=== PATIENT | male | born 1980 | race Caucasian/White ===

== ENCOUNTER 2020-11-09 14:36 | Outpatient (REF) | payer OTHER, SELFPAY | END 2020-11-09 14:37 | disposition home or self-care (01) | LOC: HO.LAB 14:36 | PROVIDERS: Visit Provider Internal Medicine | DX: Z20.822 Contact with and (suspected) exposure to COVID-19 (principal) | CPT/HCPCS: 36415; C9803; U0003; U0005 ==

== ENCOUNTER 2023-02-26 12:31 | Outpatient (REF) | payer OTHER, SELFPAY ==
[2023-02-26 18:29] LABS: Alanine Aminotransferase 21 U/L (0-40); Albumin Level 4.4 g/dL (3.5-5.0); Alkaline Phosphatase 77 U/L (39-117); Anion Gap 14 (12-20); Aspartate Amino Transferase 22 U/L (5-37); Bilirubin Total 0.8 mg/dL (0.0-1.0); Blood Urea Nitrogen 21 mg/dL (9-16); Calcium 9.7 mg/dL (8.4-10.2); Carbon Dioxide 26 mmol/L (22-29); Chloride 106 mmol/L (96-108); Cholesterol 203 mg/dL; Estimated Glomerular Filt Rate > 60; Glucose Fasting 86 mg/dL (60-99); HDL Cholesterol 43 mg/dL; LDL Cholesterol Calculated 138 mg/dl; Potassium 4.1 mmol/L (3.3-5.1); Sodium 142 mmol/L (135-145); Total Protein 7.9 g/dL (6.5-8.0); Triglycerides 113 mg/dL
== END 2023-02-26 12:32 | disposition home or self-care (01) ==
LOC: HO.HMGCLDS 12:31
PROVIDERS: PCP Nurse Practitioner Family; Visit Provider Nurse Practitioner Family
DX: Z00.00 Encounter for general adult medical examination without abnormal findings (principal)
CPT/HCPCS: 36415; 80053; 80061; 81003; 84443; 85025

== ENCOUNTER 2023-02-26 12:46 | Outpatient (AMB) | payer OTHER, SELFPAY ==
--- NOTE | 2023-02-26 12:54 | MHC.PC.OV ---
Vital Signs 02/26/23 12:56 Height 5 ft 6 in Weight 158 lb BMI 25.5 BP 120/80 Blood Pressure Location Rt brachial Position Sitting Pulse 63 Pulse Source Pulse Oximeter Pulse Oximetry (%) 98 Oxygen Delivery Method Room Air Intake Visit Reasons: 6 month follow up Intake Note: Pt is here today for his 6 months f/u Allergies No Known Allergies Allergy (Verified 02/26/23 12:55) Medication List - Last [facility] 02[facility]26[facility]23 [facility] 20 mg PO DAILY 30 days Tobacco use date assessed: 02/26/23 Dental Screening Dental Screen Date: 02/26/23 Did you have a dental visit in the last 12 months?: Yes Did you have a dental problem in the last 6 months where you did not have access to dental care?: No Was dental information given to patient?: Patient has dentist HPI 6 month follow up HPI Details Pt c/o nausea. He reports that this is worse when he wakes up. Pt reports that he is having frequent bowel movements and feels like he is not emptying his bowels every time. Denies any vomiting, abdominal pain, constipation, blood in stool, and diarrhea. Reports a fair diet, Will refer to GI. Pt also c/o insomnia, will send trazodone. [facility] Social History Housing: Apartment Patient Tobacco Use Status: Never used Tobacco e-Cigarette/Vaping Use: Never Used Second Hand Smoke Exposure: Yes service: No Current occupational status: employed Current occupation: [employer] agency Current occupational exposures/hazards: No Cognitive needs: No Hearing needs: No Vision needs: Yes Questionnaire Thrive Questionnaire Date Thrive assessed: 09/04/22 AUDIT C Alcohol Use Questionnaire (AUDIT-C) 1. How often do you have a drink containing alcohol?: Monthly or less 2. How many drinks containing alcohol do you have on a typical day when you are drinking?: 1 or 2 3. How often do you have six or more drinks on one occasion?: Never Total Score: 1 MOHINI-7 AMB Questionnaire MOHINI-7 Date MOHINI - 7 assessed: 09/04/22 Source: Developed by Drs. Gustavo Wilkinson, Elva Louis, Junior Finn and colleagues, with an educational leonardo from [employer]. Physical exam (Primary Care) Vital Signs: Last Vital Signs Pulse 63 02/26/23 12:56 BP 120/80 02/26/23 12:56 Pulse Ox 98 02/26/23 12:56 Oxygen Delivery Method Room Air 02/26/23 12:56 BMI result Body Mass Index 25.5 Tobacco/Smoking Status: Tobacco use Status Tobacco use date assessed 02/26/23 02/26/23 12:59 Patient Tobacco Use Status Never used Tobacco 02/26/23 12:55 e-Cigarette/Vaping Use Never Used 02/26/23 12:55 Thrive Assessment: Date of Thrive Assessment Date Thrive assessed 09/04/22 02/26/23 12:55 Resp Effort & Inspection: normal respiratory effort Auscultation: clear to auscultation bilaterally Cardio Rate: regular rate Rhythm: regular rhythm Heart sounds: S1 normal heart sound present and S2 normal heart sound present GI Palpation (GI): nontender Extrem General: Yes normal to inspection Psych Appearance: grossly normal Mental Status: mental status grossly normal Speech and movement: Normal speech and movement present Affect: normal affect Attitude: cooperative Thought process: Normal thought process present Thought content: Normal thought content present Insight: Good insight present (Psych) Judgement: Good judgement present (Psych) Assessment and Plan Assessment & Plan (1) Incomplete defecation: Code(s): R15.0 - Incomplete defecation (2) Nausea: Code(s): R11.0 - Nausea Orders: Referrals Gastroenterology Referral R11.0 - Nausea, R15.0 - Incomplete defecation Medications: New trazodone 50 mg PO BEDTIME PRN 30 tabs 0RF sleep 30 days Coding Level of Care Code Est Pt Level 3 (45103) Diagnoses Incomplete defecation R15.0 Nausea R11.0
[2023-02-26 12:56] VITALS: BP 120/80; PULSE 63; O2SAT 98; BMI 25.5
== END 2023-02-26 13:39 | disposition home or self-care (01) ==
PROVIDERS: Visit Provider Nurse Practitioner Family
DX: R15.0 Incomplete defecation (principal); R11.0 Nausea
CPT/HCPCS: 99213

== ENCOUNTER 2023-06-18 14:35 | Outpatient (AMB) | payer OTHER, SELFPAY ==
--- NOTE | 2023-06-18 14:40 | A.OFFVIS_ITS ---
Intake Vital Signs 06/18/23 14:44 Height 5 ft 6 in Weight 156 lb 8.451 oz BMI 25.3 BP 111/73 Blood Pressure Location Lt brachial Position Sitting Pulse 70 Intake Visit Reasons: Nausea, Incomplete Defacation Intake Note: Mohsen presents in the office as a new patient. CC: He states that he is here today because he has pains in his stomach. Every time he has a BM he will sit there for 20 minutes and nothing comes out. Then he will get the urge like he has to go again. His stomach growls all day. No blood when he has a BM. Assistant Clinical Director Required: No Allergies No Known Allergies Allergy (Verified 06/18/23 14:44) HPI HPI Comments History of Present Illness Details This is a 43y.o M with no significant PMH who is here for change in bowel habits. Reports that for the past 4-5 months has been having severe constipation which he describes as the sensation/urgency to defecate but despite straining for 15 minutes is not able to pass a BM. When he does pass a BM its hard and pellet like. No blood in stool. No night time sx. No abd pain, changes in appetite or weight change. No fam hx of CRC or IBD. Diet consists mostly of fast food for lunch, for dinner mostly rice and beans. Drinks a lot of sodas. Does report that previously used to take a lot of salads and fruits which has now changed santos this year. [facility] Social History Housing: Apartment Patient Tobacco Use Status: Never used Tobacco e-Cigarette/Vaping Use: Never Used Second Hand Smoke Exposure: Yes service: No Current occupational status: employed Current occupation: [employer] Current occupational exposures/hazards: No Cognitive needs: No Hearing needs: No Vision needs: Yes Review of Systems Const All systems reviewed & are unremarkable except as noted in HPI and below Physical Exam Vital Signs: Last Vital Signs Pulse 70 06/18/23 14:44 BP 111/73 06/18/23 14:44 BMI result Body Mass Index 25.3 Gen appear: NAD HEENT: nonicteric, no cervical lymphadenopathy Chest: CTA CVS: Regular S1/S2 Abd: soft, nontender, nondistended, bowel sounds + Ext: no peripheral edema Neuro: A/Ox3, noted to move all extremities spontaneously Psych: interacting appropriately Assessment & Plan Assessment & Plan (1) Constipation: Code(s): K59.00 - Constipation, unspecified (2) Change in bowel habit: Code(s): R19.4 - Change in bowel habit Plan Overall assessment consistent with constipation due to lack of dietary fiber and inadequate hydration. Other ddx include celiac, IBD, thyroid disorder etc. No red flags at this time to warrant emergent endoscopic evaluation, will set one up electively for change in bowel habits unless work up abnormal (see below). Plan: - Labs ordered - Increase fluid intake to at least 8-12 cups a day - Add fiber - slowly build up to 1 tbsp mixed in 8oz water daily - Add senna or miralax PRN - [place] if sx do not improve despite these measures. Split PEG prep instructions were reviewed in anticipation and PEG sent but pt knows to call and update us if not needed. Orders: Orders Calprotectin, Fecal 06/18/23 R19.4 - Change in bowel habit TSH reflex Free T4 06/18/23 R19.4 - Change in bowel habit Immunoglobulin A 06/18/23 R19.4 - Change in bowel habit Transglutaminase IgA 06/18/23 R19.4 - Change in bowel habit Medications: New omeprazole 20 mg PO DAILY 90 caps 0RF peg 3350-electrolytes 236-22.74-6.74 -5.86 gram (Golytely) as per split prep instructions, until fecal effluent is clear 240 mL PO Q10M 4,000 mL 0RF colonoscopy Discontinued pantoprazole Discontinued Reason: Patient Completed Course 20 mg PO DAILY 30 days 30 tabs 4RF Coding Level of Care Code New Pt Level 4 (84698) Diagnoses Constipation K59.00 Change in bowel habit R19.4
[2023-06-18 14:44] VITALS: BP 111/73; PULSE 70; BMI 25.3
== END 2023-06-18 15:55 | disposition home or self-care (01) ==
PROVIDERS: PCP Nurse Practitioner Family; Visit Provider Internal Medicine
DX: K59.00 Constipation, unspecified (principal)
CPT/HCPCS: 99204

== ENCOUNTER → 2023-06-18 14:35 | Outpatient (BNVA) | payer OTHER, SELFPAY | PROVIDERS: PCP Nurse Practitioner Family; Visit Provider Internal Medicine | DX: K59.00 Constipation, unspecified (principal); R19.4 Change in bowel habit | CPT/HCPCS: 99202 ==

== ENCOUNTER 2023-09-05 15:54 | Outpatient (AMB) | payer OTHER, SELFPAY ==
[2023-09-05 16:03] VITALS: BP 118/76; PULSE 91; O2SAT 97; BMI 26.4
--- NOTE | 2023-09-05 16:03 | MHC.PC.OV ---
Vital Signs 09/05/23 16:03 Height 5 ft 6 in Weight 163 lb 8 oz BMI 26.4 BP 118/76 Blood Pressure Location Rt brachial Position Sitting Pulse 91 Pulse Source Pulse Oximeter Pulse Oximetry (%) 97 Oxygen Delivery Method Room Air Intake Visit Reasons: PE Intake Note: Pt is here for his Annual PE Allergies No Known Allergies Allergy (Verified 09/05/23 16:23) Medication List - Last Reconciled 09/05/23 by NICOLE Conley pantoprazole 20 mg PO DAILY peg 3350-electrolytes 236-22.74-6.74 -5.86 gram (Golytely) 240 mL PO Q10M trazodone 50 mg PO BEDTIME PRN 30 days Tobacco use date assessed: 09/05/23 Dental Screening Dental Screen Date: 09/05/23 Did you have a dental visit in the last 12 months?: Yes Did you have a dental problem in the last 6 months where you did not have access to dental care?: No Was dental information given to patient?: Patient has dentist HPI PE HPI Details Pt is here for a PE. Will order labs. Pt c/o increased GERD symptoms. He is taking omeprazole which does not help. Will stop this and send pantoprazole. [facility] Social History Housing: Apartment Patient Tobacco Use Status: Never used Tobacco e-Cigarette/Vaping Use: Never Used Second Hand Smoke Exposure: Yes service: No Current occupational status: employed Current occupation: [employer] Current occupational exposures/hazards: No Cognitive needs: No Hearing needs: No Vision needs: Yes Questionnaire PHQ-9 Over the last 2 weeks, how often have you been bothered by any of the following problems? 1. Little interest or pleasure in doing things: not at all 2. Feeling down, depressed, or hopeless: several days 3. Trouble falling or staying asleep, or sleeping too much: nearly every day 4. Feeling tired or having little energy: more than half the days 5. Poor appetite or overeating: not at all 6. Feeling bad about yourself - or that you are a failure or have let yourself or your family down: not at all 7. Trouble concentrating on things, such as reading the newspaper or watching television: not at all 8. Moving or speaking so slowly that other people could have noticed. Or the opposite - being so fidgety or restless that you have been moving around a lot more than usual: several days 9. Thoughts that you would be better off or of hurting yourself in some way: not at all Total score: 7 Depression Screening Interpretation: Negative Depression Screening Done: Yes 88416 - PHQ-9 Billing: Yes Source: Developed by Drs. Gustavo Wilkinson, Elva Louis, Junior Finn and colleagues, with an educational leonardo from [employer]. Thrive Questionnaire Date Thrive assessed: 09/05/23 I am a: Patient What is your living situation today?: I have a steady place to live Within the past 12 months, did the food you bought not last and you didn't have the money to get more?: Never true Within the past 12 months, did you worry whether your food would run out before you got money to buy more?: Never true Do you have trouble paying for medicines?: No Do you have trouble getting transportation to medical appointments?: No Do you have trouble paying your heating and electricity bill?: No Do you have trouble taking care of your child, family member or friend?: No Do you have trouble with day-to-day activities such as bathing, preparing meals, shopping, managing finances, etc.?: No Are you currently unemployed and looking for a job?: No Are you interested in more education?: No Currently or been in a relationship where the following occur: no concerns reported AUDIT C Alcohol Use Questionnaire (AUDIT-C) 1. How often do you have a drink containing alcohol?: Monthly or less 2. How many drinks containing alcohol do you have on a typical day when you are drinking?: 1 or 2 3. How often do you have six or more drinks on one occasion?: Never Total Score: 1 Score Reviewed/Action Taken: No MOHINI-7 AMB Questionnaire MOHINI-7 Date MOHINI - 7 assessed: 09/05/23 Feeling nervous, anxious, or on edge: 0 = Not at all Not being able to stop or control worryin = Several days Worrying too much about different things: 0 = Not at all Trouble relaxin = More than half the days Being so restless that it is hard to sit still: 1 = Several days Becoming easily annoyed or irritable: 1 = Several days Feeling afraid as if something awful might happen: 0 = Not at all Total MOHINI-7 score (0-4 normal; 5-9 mild; 10-14 moderate; 15-21 severe): 5 Source: Developed by Drs. Gustavo Wilkinson, Elva Louis, Junior Finn and colleagues, with an educational leonardo from [employer]. MOHINI-7 Assessment Billing MOHINI-7 Assessment Tool: MOHINI-7 Assessment 74516 Review of Systems Const Denies chills and Denies fever(s) Eyes Denies blurry vision ENT Denies vertigo, Denies dizziness and Denies sore throat Card Denies chest pain at rest, Denies chest pain with activity, Denies diaphoresis, Denies dyspnea and Denies dyspnea on exertion Resp Denies cough, Denies dyspnea, Denies dyspnea on exertion and Denies wheezing GI Denies abdominal pain, Denies melena, Denies hematochezia, Denies constipation, Denies diarrhea and Denies loose stools Denies hematuria Musc Denies numbness and Denies tingling Skin/Breast Denies lesions Neuro Denies vertigo, Denies dizziness, Denies numbness and Denies tingling Psych Denies anxiety, Denies depression, Denies homicidal ideation, Denies suicidal ideation and Denies other (substance abuse) Aller/Immun Denies wheezing Physical exam (Primary Care) Vital Signs: Last Vital Signs Pulse 91 09/05/23 16:03 BP 118/76 09/05/23 16:03 Pulse Ox 97 09/05/23 16:03 Oxygen Delivery Method Room Air 09/05/23 16:03 BMI result Body Mass Index 26.4 Tobacco/Smoking Status: Tobacco use Status Tobacco use date assessed 09/05/23 09/05/23 16:09 Patient Tobacco Use Status Never used Tobacco 09/05/23 16:09 e-Cigarette/Vaping Use Never Used 09/05/23 16:09 PHQ-9: PHQ-9 Score PHQ-9: Total score 7 09/05/23 16:22 Depression Screening Interpretation: Negative Thrive Assessment: Date of Thrive Assessment Date Thrive assessed 09/05/23 09/05/23 16:22 Currently or been in a relationship where the following occur: no concerns reported Const General: cooperative Nutritional Appearance: well nourished Orientation/consciousness: patient oriented x3 HENMT Head: Yes normal to inspection, Yes normocephalic and Yes atraumatic Ears: TM's normal bilaterally Eyes General: appearance normal, both eyes and all related structures Alignment and Position: alignment normal and position normal Neck Neck: Yes normal visual inspection and Yes no lymphadenopathy Thyroid: Thyroid normal Resp Effort & Inspection: normal respiratory effort Auscultation: clear to auscultation bilaterally Cardio Rate: regular rate Rhythm: regular rhythm Heart sounds: S1 normal heart sound present, S2 normal heart sound present and no murmurs GI Palpation (GI): Soft to palpation and nontender Auscultation: normal bowel sounds Male General Exam: Yes normal external exam Penis: normal penis Scrotum: scrotum normal, testes descended bilaterally and no inguinal hernias Testes: no testicular mass Skin Rashes: no rashes Neuro General: patient oriented x3, moves all extremities, no focal motor deficits and deep tendon reflexes 2+ bilaterally Romberg Test: Negative Psych Appearance: grossly normal Mental Status: mental status grossly normal Speech and movement: Normal speech and movement present Affect: normal affect Attitude: cooperative Thought process: Normal thought process present Thought content: Normal thought content present Insight: Good insight present (Psych) Judgement: Good judgement present (Psych) Assessment and Plan Assessment & Plan (1) GERD (gastroesophageal reflux disease): Code(s): K21.9 - Gastro-esophageal reflux disease without esophagitis (2) Physical exam: Code(s): Z00.00 - Encounter for general adult medical examination without abnormal findings Plan The patient agreed to the use of a medical logistics specialist for this encounter. Scribed for NICOLE Winters by Viktoriya Hernandes medical logistics specialist, on 09/05/2023 at 16:15 EST. Medications: New pantoprazole 20 mg PO DAILY 90 tabs 0RF Discontinued omeprazole Discontinued Reason: Doctor's Order 20 mg PO DAILY 90 caps 0RF Coding Level of Care Code Est Pt Prev Care 40-64y(60032) Diagnoses GERD (gastroesophageal reflux disease) K21.9 Physical exam Z00.00 Additional Codes MOHINI-7 Assessment Billing - MOHINI-7 Assessment Tool: MOHINI-7 Assessment 62310 ([id number])
== END 2023-09-05 16:23 | disposition home or self-care (01) ==
PROVIDERS: PCP Nurse Practitioner Family; Visit Provider Nurse Practitioner Family
DX: K21.9 Gastro-esophageal reflux disease without esophagitis (principal); Z00.00 Encounter for general adult medical examination without abnormal findings
CPT/HCPCS: 99396

== ENCOUNTER 2023-12-20 07:02 | Day surgery (SDC) | payer OTHER, SELFPAY ==
[2023-12-18 07:17] VITALS: BMI 25.2
--- NOTE | 2023-12-18 14:54 | P.CONAN_ITS ---
Documented by User: Felicia Ott NP 12/18/23 14:54 HPI - Anesthesia Eval Consult details Narrative: 43yo M for Colonoscopy [facility] Active Problems Active Problems: All Active Problems Constipation (Acute) Change in bowel habit (Acute) Incomplete defecation (Acute) Nausea (Acute) Fatigue (Acute) Physical exam (Acute) GERD (gastroesophageal reflux disease) (Acute) Halitosis (Acute) History of bloody stools (Acute) Social History Social History Housing: Apartment Patient Tobacco Use Status: Never used Tobacco e-Cigarette/Vaping Use: Never Used Second Hand Smoke Exposure: Yes Use of substances other than those prescribed or required for medical reasons: No Are you DNR?: No Advance Directives: No Advance Directives Information Provided: Yes service: No Current occupational status: employed Current occupation: [employer] Current occupational exposures/hazards: No Cognitive needs: No Hearing needs: No Vision needs: Yes Meds Allergies Allergy/AdvReac Type Severity Reaction Status Date / Time No Known Allergies Allergy Verified 09/05/23 16:23 Exam Height,Weight and Vital Signs: Height 5 ft 6 in Weight 70.76 kg Assessment and Plan Assessment Anesthesia Assessment: Chart Reviewed Documented by User: Omayra Rincon MD 12/20/23 08:20 [facility] Surgical History History of Problems with Anesthesia: No Social History Social History Housing: Apartment Patient Tobacco Use Status: Never used Tobacco e-Cigarette/Vaping Use: Never Used Second Hand Smoke Exposure: Yes Use of substances other than those prescribed or required for medical reasons: No Are you DNR?: No Advance Directives: No Advance Directives Information Provided: Yes service: No Current occupational status: employed Current occupation: [employer] Current occupational exposures/hazards: No Cognitive needs: No Hearing needs: No Vision needs: Yes Meds Allergies Allergy/AdvReac Type Severity Reaction Status Date / Time No Known Allergies Allergy Verified 09/05/23 16:23 Exam Airway Mallampati Class: III TM Dist: >3cm Neck ROM: Full Loose/Missing/Broken Teeth: No Heart: RRR Lungs: CTA Assessment and Plan Assessment Anesthesia Assessment: Anesthesia Plan Discussed Final Anesthetic Review History of Problems with Anesthesia: No NPO: Yes ASA Class: II Final Preanesthetic Review: Meds/Allgs Chart Reviewed, Consent Obtained/Reviewed and Anes Risks/Benef Reviewed Patient Risk: Low Procedure Risk: Low Anesthetic Plan Anesthetic Plan: MAC: Disposition: Standard PACU
[2023-12-20 07:17] VITALS: BMI 26.3
[2023-12-20 07:30] VITALS: BP 117/76; PULSE 89; RESP 16; TEMP 36.8; O2SAT 97
[2023-12-20] MEDS: Lactated Ringers 1,000 ML 100 ML IVCONT (07:35)
--- NOTE | 2023-12-20 08:01 | MHC.SHP ---
Pre-Procedural Eval Section A - 24 Hr Update-Section A only Date of Service: 12/20/23 Section B - Complete if H&P > 30 days Chief Complaint: Change in bowel habit,constipation Relevant Family History (Specify if Yes): No Relevant Social History: None Present Medications: see Short Stay Collaborative assessment Medical History: No relevant PMH History of Previous Operations: No relevant previous surgery Allergies: Allergies Allergy/AdvReac Type Severity Reaction Status Date / Time No Known Allergies Allergy Verified 09/05/23 16:23 Review of Systems Review of Systems Comment: Ten point ROS negative Exam Exam Comment: Gen appear: No acute distress HEENT: no icterus Chest: No overt resp distress Abd: soft, nontender, nondistended Psych: Stable affect, answering questions appropriately Neuro: A/Ox3 noted to move all extremities spontaneously Ext: no peripheral edema Plan Diagnosis/Plan: Unchanged I have reviewed the history and physical and performed a pertinent physical examination on my patient. No changes have occurred unless specified. Time Spent With Patient Time: Total time managing care of this patient today ____ minutes.
[2023-12-20 09:02] VITALS: BP 92/56; PULSE 88; RESP 18; TEMP 36.3; O2SAT 97
--- NOTE | 2023-12-20 09:05 | P.OP_ITS ---
Operative Note Operative Note Date of Service: 12/20/23 Narrative: Procedure: Colonoscopy Indication: Change in bowel habits Endoscopist: Ana Helton MD Anesthesia Provider: Eun Knowles CRNA Anesthesia type: MAC Instrument: Olympus [id number]-[id number] Consent: Indication, risks vs benefits, and alternatives were discussed with the patient who gave written informed consent to proceed. EKG, pulse, pulse oximetry and blood pressure were monitored throughout the procedure. Please see anesthesia flowsheet. Procedure: The patient was brought to the procedure room and placed in the left lateral decubitus position. IV medications were administered by the anesthesia provider in attendance. A digital rectal exam was performed which was normal. A distal attachment cap was affixed to the tip of the scope and the colonoscope was then inserted through the anus and advanced through the colon to the cecum at 75 cm,and terminal ileum. Ileocecal valve and appendiceal orifice were identified. Mucosa was carefully examined under high definition white light as the instrument was slowly withdrawn in a retrograde panoramic fashion. Retroflexion was performed in rectum. The procedure was not difficult. There were no immediate obvious complications. The quality of the prep was BBPS: 2+3+2 = adequate Withdrawal time 6 minutes. Limitations: No limitations. Findings: Mucosa: Normal to cecum. Protruding lesions: * Medium internal hemorrhoids without stigmata of recent bleeding. Impression: 1. Normal colon mucosa 2. Internal hemorrhoids Recommendations: - No mucosal or luminal abnormalities were noted today. - Repeat colonoscopy recommended in 10 years for asymptomatic colorectal cancer screening.
[2023-12-20 09:17] VITALS: BP 116/77; PULSE 71; RESP 18; O2SAT 97
[2023-12-20 09:32] VITALS: BP 122/79; PULSE 74; RESP 18; TEMP 36.2; O2SAT 97
== END 2023-12-20 10:18 | disposition home or self-care (01) ==
PROVIDERS: PCP Nurse Practitioner Family; Visit Provider Internal Medicine
PROC: 0DJD8ZZ Inspection of Lower Intestinal Tract, Via Natural or Artificial Opening Endoscopic (ICD-10-PCS; CPT 45378; principal; 2023-12-20 08:40)
DX: R19.4 Change in bowel habit (principal); K64.8 Other hemorrhoids
CPT/HCPCS: 45378; J2704

== ENCOUNTER → 2023-12-20 07:02 | Outpatient (BNV) | payer OTHER, SELFPAY | PROVIDERS: PCP Nurse Practitioner Family; Visit Provider Internal Medicine | DX: R19.4 Change in bowel habit (principal); K64.8 Other hemorrhoids | CPT/HCPCS: 45378 ==

== ENCOUNTER 2024-10-27 13:30 | Outpatient (REF) | payer OTHER, SELFPAY ==
[2024-10-27 18:58] LABS: Influenza A PCR NEGATIVE (Negative); Influenza B PCR NEGATIVE (Negative); Resp Syncy Virus RNA Qual PCR NEGATIVE (Negative); SARS COV2 PCR INHOUSE NEGATIVE (Negative)
== END 2024-10-27 13:31 | disposition home or self-care (01) ==
LOC: HO.LAB 13:30
PROVIDERS: Physician Assistant; PCP Nurse Practitioner Family
DX: B34.9 Viral infection, unspecified (principal); R09.89 Other specified symptoms and signs involving the circulatory and respiratory systems; R05.9 Cough, unspecified
CPT/HCPCS: 0241U; 99212

== ENCOUNTER 2024-10-27 13:30 | Outpatient (AMB) | payer OTHER, SELFPAY ==
--- NOTE | 2024-10-27 13:33 | AM.OFFWIN_ITS ---
Intake Vital Signs 10/27/24 13:35 Weight 163 lb BP 130/78 Blood Pressure Location Lt brachial Position Sitting Pulse 103 H Pulse Source Pulse Oximeter Temp 98.0 F Temp Source Oral Pulse Oximetry (%) 97 Oxygen Delivery Method Room Air Intake Visit Reasons: EP-fever, chills, cough, body ache Intake Note: Patient here for fever, chills, cough and body aches that started Sunday. Patient Tobacco Use Status: Never used Tobacco Allergies No Known Allergies Allergy (Verified 10/27/24 13:36) Do you need a note to return to daycare/school/sports/work: Yes HPI HPI Comments History of Present Illness Details History The patient is a 44-year-old male presenting with acute upper respiratory symptoms that began 2 days ago. Initial sore throat progressed over Sunday to Sunday with body aches and mild fever at 100?F. The patient reports associated cough and nasal congestion. He denies asthma, COPD, smoking, or significant shortness of breath. Has used DayQuil and NyQuil for symptomatic relief. 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 Symptoms worsened with exertion, particularly while navigating stairs. Examination reveals stable oxygenation with sinus tenderness. Physical Exam General: Cooperative, healthy appearing, comfortable and no acute distress Orientation/consciousness: Patient oriented x3 Limitations: No limitations Head: Normal to inspection Ears: Hearing grossly normal bilaterally, external ears normal and TM's normal bilaterally Nose: Normal external nose present, Normal nares present and No nasal discharge present Face and sinus: Normal facial exam and Sinuses tender Mouth: Normal oral and palatal mucosa present and moist mucous membranes Throat: Yes tonsils normal, Yes uvula midline. Posterior oropharynx erythema Eyes: Appearance normal, both eyes and all related structures Neck: Normal visual inspection Respiratory: Clear to auscultation bilaterally. Normal respiratory effort, able to speak in complete sentences, Actively coughing, no respiratory distress, not tachypneic, no tripod positioning and no use of accessory muscles Cardiovascular: Regular rate and rhythm. no murmurs rubs or gallops Skin: No rashes or lesions noted Neuro: Patient oriented x3 Extremities: Normal to inspection and Yes no clubbing, cyanosis or edema [facility] Social History Housing: Apartment Patient Tobacco Use Status: Never used Tobacco e-Cigarette/Vaping Use: Never Used Second Hand Smoke Exposure: Yes service: No Current occupational status: employed Current occupation: [employer] Current occupational exposures/hazards: No Cognitive needs: No Hearing needs: No Vision needs: Yes Review of Systems Const All systems reviewed & are unremarkable except as noted in HPI and below Physical Exam Vital Signs: Last Vital Signs Temp 98.0 F 10/27/24 13:35 Pulse 103 H 10/27/24 13:35 BP 130/78 10/27/24 13:35 Pulse Ox 97 10/27/24 13:35 Oxygen Delivery Method Room Air 10/27/24 13:35 Assessment & Plan Assessment & Plan (1) Acute viral syndrome: Code(s): B34.9 - Viral infection, unspecified Plan: VSS, pt well appearing and PE unremarkable. The patient's presentation is consistent with an influenza-like syndrome, potentially due to viral pathogens such as influenza, covid or rsv, for which nasopharyngeal swab testing was p erformed. Oseltamivir was considered within the 48-hour symptom window, if influenza is confirmed, after discussing its gastrointestinal side effects. Symptomatic management will continue with DayQuil and NyQuil, and benzonatate has been prescribed for nighttime cough suppression. Rest and hydration were advised, along with temporary activity limitations. The patient should return if symptoms persist or worsen, with arrangements for follow-up dependent on diagnostic outcomes. Patient was informed and verbally consented to the use of an ambient scribe for clinic note documentation during this visit Orders: Orders SARS-CoV2/FLU/RSV Today R09.89 - Other specified symptoms and signs involving the circulatory and respiratory systems Medications: New benzonatate 200 mg PO BEDTIME PRN 10 caps 0RF cough Coding Level of Care Code Est Pt Level 3 (35252) Diagnoses Acute viral syndrome B34.9
[2024-10-27 13:35] VITALS: BP 130/78; PULSE 103; TEMP 36.7; O2SAT 97
== END 2024-10-27 14:17 | disposition home or self-care (01) ==
PROVIDERS: PCP Nurse Practitioner Family; Visit Provider Physician Assistant
DX: B34.9 Viral infection, unspecified (principal)

== ENCOUNTER 2024-12-27 10:07 | Outpatient (REF) | payer OTHER, SELFPAY ==
[2024-12-27 11:58] LABS: Appearance Urine Clear; Color Urine Yellow; Glucose Urine UA Negative (Negative); Leukocyte Esterase Urine Negative (Negative); Nitrite Urine Negative (Negative); PH 6.5 (5.0-9.0); Specific Gravity - Urine 1.015 (1.005-1.025); Urine Blood Negative (Negative); Urine Ketones Negative (Negative); Urine Protein Negative (Neg-Trace)
== END 2024-12-27 10:08 | disposition home or self-care (01) ==
LOC: HO.HMGCLDS 10:07
PROVIDERS: PCP Nurse Practitioner Family; Visit Provider Family Medicine
DX: N39.0 Urinary tract infection, site not specified (principal)
CPT/HCPCS: 81003; 87086

== ENCOUNTER 2025-03-31 17:26 | Emergency (ER) | payer OTHER, SELFPAY ==
--- NOTE | 2025-03-31 | ECG_ITS ---
Test Reason : tachycardia Blood Pressure : */* mmHG Vent. Rate : 121 BPM Atrial Rate : 121 BPM P-R Int : 132 ms QRS Dur : 74 ms QT Int : 300 ms P-R-T Axes : 65 -33 36 degrees QTcB Int : 426 ms Sinus tachycardia Left axis deviation Abnormal ECG No previous ECGs available Referred By: Generic ED Physician Electronically Signed By: Kulwinder Monzon
--- NOTE | ~2025-03-31 | CT_ITS ---
CLINICAL HISTORY: LLQ pain, rectal bleeding CT abdomen and pelvis with contrast Comparison: None provided Findings: No consolidation or effusion. The liver, spleen, adrenal glands, pancreas, gallbladder, kidneys, ureters and bladder are normal. The prostate gland is within normal limits. No bowel obstruction or free air. Normal appendix. Scattered gas and fluid throughout nondistended small and large bowel. No acute osseous finding. Impression: Findings suggest mild enteritis. This document has been electronically signed by: Bobby Hernandez MD on 03/31/2025 21:11:14
[2025-03-31 17:30] VITALS: BP 122/67; PULSE 122; RESP 16; TEMP 36.6; O2SAT 99; BMI 25.3
--- NOTE | 2025-03-31 17:34 | ED.GENADULT ---
HPI - General Adult General Chief complaint: Abdominal Pain Stated complaint: upper stomach pain Time Seen by Provider: 03/31/25 18:29 Source: patient Mode of arrival: ambulatory Limitations: no limitations History of Present Illness ED Provider: Dr. Anum Blake [facility] narrative: Patient comes to the emergency room complaining of 1 day of left lower quadrant pain, diarrhea. Patient states that he has been blood in the diarrhea. Also complaining of nausea but no vomiting. The patient's knowledge, he has never been diagnosed with colitis or diverticulitis. Patient states that he rarely drinks alcohol. Denies fever chills. Denies hematuria or dysuria. Related Data Previous Rx's ?Medication ?Instructions ?Recorded benzonatate 200 mg capsule 200 mg PO BEDTIME PRN cough #10 10/27/24 caps loperamide 2 mg tablet 2 mg PO Q4H PRN loose stool #14 03/31/25 tabs ondansetron HCl 4 mg tablet 4 mg PO Q6H PRN nausea and 03/31/25 vomiting #14 tabs Allergies Allergy/AdvReac Type Severity Reaction Status Date / Time No Known Allergies Allergy Verified 03/31/25 17:31 Review of Systems Review of Systems: Constitutional : No Weight loss, No Fever, No Chills, No Night Sweats, No Fatigue, No Malaise ENT/Mouth : No Hearing loss, No Ear Pain, No Nasal Congestion, No Sinus Pain, No Hoarseness, No sore throat, No Rhinorrhea, No Swallowing Difficulty Eyes: No Eye Pain, No Swelling, No Redness, No Foreign Body, No Discharge, No Vision Changes Cardiovascular : No Chest Pain, No SOB, No Dyspnea on Exertion, No Orthopnea, No Edema, No Palpitations Respiratory : No Cough, No Sputum, No Wheezing, No Smoke Exposure, No Dyspnea Gastrointestinal : Complaining of nausea, no vomiting, complaining of black diarrhea with some blood, complaining of left lower quadrant pain with no radiation Genitourinary : no irregular bleeding, No Dysuria, No Urinary Frequency, No Hematuria, No Urinary Incontinence, No Urgency, No Flank Pain, No Urinary Flow Changes, No Hesitancy Musculoskeletal : No joint pain, No Myalgias, No Joint Swelling Skin : No Skin Lesions, No rash Neuro : No Weakness, No Numbness, No Paresthesias, No Loss of Consciousness, No Dizziness, No Headache Psych : No Anxiety/Panic, No Depression, No SI/HI/AH/VH, No Social Issues, Heme/Lymph: No Bruising, No Bleeding,No Lymphadenopathy Endocrine : No Polyuria, No Polydipsia, No Temperature Intolerance [facility] Social History Social History Housing: Apartment Patient Tobacco Use Status: Never used Tobacco Smoked in Last 30 Days: No e-Cigarette/Vaping Use: Never Used Second Hand Smoke Exposure: Yes Use of substances other than those prescribed or required for medical reasons: No Advance Directives: No Advance Directives Information Provided: No Do you have a plan to hurt others: No Plan service: No Current occupational status: employed Current occupation: [employer] Current occupational exposures/hazards: No Cognitive needs: No Hearing needs: No Vision needs: Yes Physical Exam ED Exam Exam: Appearance: Alert. Oriented X3. No acute distress. Well-appearing Eyes: Pupils equal, round and reactive to light. ENT: Pharynx normal. Neck: Normal inspection. Neck supple. No lymph nodes noted. No crepitus CVS: Normal heart rate and rhythm. Pulses normal. Normal S1 and S2 Respiratory: No respiratory distress. Breath sounds normal. No Wheezing. No rales Abdomen: Soft no significant pain to palpation in any of the quadrants, no rebound or guarding, on digital rectal exam, there was blood in the stool. Skin: Skin warm and dry. Normal skin color. Normal skin turgor. Extremities: No lower extremity edema. No Lacerations. No Rash Neuro: Oriented X 3. No motor deficit. No sensory deficit. Moving all extremities. No slurred speech. CN 2 through 12 grossly intact Psych: calm, cooperative, normal affect Vital Signs: Vital Signs - 24 hr 03/31/25 17:30 03/31/25 18:38 03/31/25 19:16 Temperature 97.8 F 98 F 98 F Pulse Rate 122 H 115 H 118 H Respiratory Rate 16 20 16 Blood Pressure 122/67 106/77 111/76 Pulse Oximetry 99 97 98 Oxygen Delivery Method Room Air Room Air Room Air BMI result Body Mass Index 25.3 Course Course Course Narrative: Rapid medical examination performed in triage by Saundra Cook PA-C. Patient is a 44 year old assigned male at presenting to the emergency department with epigastric pain and diarrhea. Detailed physical exam and review of systems are deferred to the primary montessori teacher. EKG, labs ordered. Patient placed back in the waiting room pending room availability and results. Medications Administered Discontinued Medications Generic Name Dose Route Start Last Admin Trade Name Dex PRN Reason Stop Dose Admin Lactated Ringer's 1,000 mls @ 999 mls/hr 03/31/25 19:30 03/31/25 19:35 Lr IV 03/31/25 20:30 999 mls/hr .Q1H1M ELVIS Administration Iohexol 85 ml 03/31/25 19:49 03/31/25 19:50 Iohexol 350 Mg/Ml 100 Ml Infus..Btl IV 03/31/25 19:50 85 ml ONCE ONE Administration Loperamide HCl 4 mg 03/31/25 19:16 03/31/25 19:34 Loperamide Hcl 2 Mg Capsule PO 03/31/25 19:17 4 mg ONCE ONE Administration Ondansetron HCl 4 mg 03/31/25 19:16 03/31/25 19:34 Ondansetron Hcl 4 Mg/2 Ml Vial IVPUSH 03/31/25 19:17 4 mg ONCE ONE Administration Medical Decision Making Medical Decision Making [facility] Narrative: My interpretation of labs: No significant abnormality in patient's hematology and chemistry, patient's digital rectal exam does show blood in the rectal area Patient complaining of left lower quadrant pain. CT scan of the abdomen pending to rule out diverticulitis Patient receiving IV fluids, Zofran and p.o. loperamide Patient's CT scan shows enteritis, no other acute abnormality. The buttocks are not indicated at this time. Patient states that since he got the medication above-mentioned he has not had any episodes of diarrhea or rectal bleeding. Patient feels well, no abdominal pain, no cramping Differential Diagnosis Differential Diagnoses: The differential diagnosis associated with the presentation includes (Gastroenteritis, enteritis, colitis, diverticulitis, internal hemorrhoids) Admission/Observation Consideration of admission/observation: Escalation of care including admission/observation considered (Given patient's presentation and physical exam, observation was considered) Lab Data [facility] Lab Attestation statement: I reviewed the patient's lab results. 03/31/25 17:46 03/31/25 17:46 Labs: Lab Results 03/31/25 03/31/25 Range/Units 17:46 19:17 WBC 7.9 (4.8-10.8) X10*3/uL RBC 4.65 (4.60-5.80) X10*6/uL Hgb 13.9 L (14.0-18.0) g/dl Hct 42.0 (42.0-52.0) % MCV 90.3 (80.0-98.0) fL MCH 29.9 (27.0-33.0) pg MCHC 33.1 (31.0-36.0) g/dl RDW 13.2 (11.0-16.0) % Plt Count 334 (160-400) X10*3/uL MPV 10.3 (9.4-12.4) fL Immature Gran % (Auto) 0.3 (0.0-0.4) % Neut % (Auto) 55.2 (45-73) % Lymph % (Auto) 38.2 (20-40) % [place] % (Auto) 5.4 (2-11) % Eos % (Auto) 0.5 (0-4) % Baso % (Auto) 0.4 (0-2) % Lymph # (Auto) 3.0 (1.2-4.9) X10*3/uL [place] # (Auto) 0.4 (0.1-1.2) X10*3/uL Eos # (Auto) 0.0 (0.0-0.4) X10*3/uL Baso # (Auto) 0.0 (0.0-0.2) X10*3/uL Abs Immat Gran (auto) 0.02 (0.00-0.03) X10*3/uL Absolute Neuts (auto) 4.4 (2.0-8.3) x10*3/uL Absolute Nucleated RBC 0.000 (0.0-0.012) X10*3/uL Nucleated RBC % (auto) 0.0 (0.0-0.2) /100WBC Sodium 142 (135-145) mmol/L Potassium 4.1 (3.3-5.1) mmol/L Chloride 108 (96-108) mmol/L Carbon Dioxide 23 (22-29) mmol/L Anion Gap 15 (12-20) BUN 32 H (9-16) mg/dL Creatinine 0.85 (0.5-1.4) mg/dL Estim Creat Clear Calc 101.1 Estimated GFR > 60 Random Glucose 106 (60-115) mg/dL Calcium 8.5 D (8.4-10.2) mg/dL Magnesium 1.9 (1.6-2.6) mg/dL Total Bilirubin 0.4 (0.0-1.0) mg/dL AST 22 (5-37) U/L ALT 20 (0-40) U/L Alkaline Phosphatase 77 (39-117) U/L Troponin I High Sens < 2.7 (<3.5-35.0) ng/L Total Protein 7.3 (6.5-8.0) g/dL Albumin 4.6 (3.5-5.0) g/dL Lipase 28 (8-78) U/L Stool Occult Blood POSITIVE (NEGATIVE) Independent Interpretation I performed an independent interpretation of an: CT Scan Radiology Impression Discussion of test interpretation with radiology: I have reviewed the radiologist's reading. Radiologist Impression: No consolidation or effusion. The liver, spleen, adrenal glands, pancreas, gallbladder, kidneys, ureters and bladder are normal. The prostate gland is within normal limits. No bowel obstruction or free air. Normal appendix. Scattered gas and fluid throughout nondistended small and large bowel. No acute osseous finding. Impression: Findings suggest mild enteritis Critical Care Time Critical Care Time Critical Care Time: Yes Total Critical Care Time: 35 Attestation: I have personally provided critical care time. Time includes review of lab data, radiology results, discussion with consultants, and monitoring for potential decompensation. Intervention performed as documented. Discharge Plan Discharge Clinical Impression: Enteritis Patient Disposition: Home, Self-Care Instructions: Acute Nausea and Vomiting (ED), Acute Diarrhea (ED) Additional Instructions: Please follow-up with your primary care physician tomorrow. If you have any worsening or new symptoms, please return to the emergency room or call 911 Prescriptions: New loperamide 2 mg tablet 2 mg PO Q4H PRN (Reason: loose stool) Qty: 14 0RF Rx Instructions: administer after each loose stool until symptoms controlled; do not exceed 8 mg per 24 hrs ondansetron HCl 4 mg tablet 4 mg PO Q6H PRN (Reason: nausea and vomiting) Qty: 14 0RF No Action benzonatate 200 mg capsule 200 mg PO BEDTIME PRN (Reason: cough) Qty: 10 0RF Print Language: Frisian
[2025-03-31 17:51] LABS: MANUAL DIFF FLAG NO
[2025-03-31 17:52] LABS: Hematocrit 42.0 % (42.0-52.0); Hemoglobin 13.9 g/dl (14.0-18.0); Imm Gran Abs Auto 0.02 X10*3/uL (0.00-0.03); Imm Gran Pct Auto 0.3 % (0.0-0.4); Lymphocytes Absolute Auto 3.0 X10*3/uL (1.2-4.9); Mean Corpuscular HGB Conc 33.1 g/dl (31.0-36.0); Mean Corpuscular Hemoglobin 29.9 pg (27.0-33.0); Mean Corpuscular Volume 90.3 fL (80.0-98.0); NRBC Abs Auto 0.000 X10*3/uL (0.0-0.012); NRBC Pct Auto 0.0 /100WBC (0.0-0.2); Platelet Count 334 X10*3/uL (160-400); Red Blood Count 4.65 X10*6/uL (4.60-5.80); White Blood Count 7.9 X10*3/uL (4.8-10.8)
[2025-03-31 18:13] LABS: Alanine Aminotransferase 20 U/L (0-40); Albumin Level 4.6 g/dL (3.5-5.0); Alkaline Phosphatase 77 U/L (39-117); Anion Gap 15 (12-20); Aspartate Amino Transferase 22 U/L (5-37); Blood Urea Nitrogen 32 mg/dL (9-16); Calcium 8.5 mg/dL (8.4-10.2); Carbon Dioxide 23 mmol/L (22-29); Chloride 108 mmol/L (96-108); Creatinine Clr Calc Pharmacy 101.1; Estimated Glomerular Filt Rate > 60; Lipase 28 U/L (8-78); Magnesium 1.9 mg/dL (1.6-2.6); Potassium 4.1 mmol/L (3.3-5.1); Sodium 142 mmol/L (135-145); Total Protein 7.3 g/dL (6.5-8.0)
[2025-03-31 18:23] LABS: Troponin-I High Sensitivity < 2.7 ng/L (<3.5-35.0)
--- NOTE | 2025-03-31 18:25 | MHC.EDTECH ---
T/W documented EKG for triage tech.
[2025-03-31 18:38] VITALS: BP 106/77; PULSE 115; RESP 20; TEMP 36.6; O2SAT 97
--- NOTE | 2025-03-31 18:48 | PC.NURSE ---
Patient presents to ED c/o abdominal pain rated 8/10 radiating to left side with reports of bloody diarrhea and nausea Patient reports the 1st BM to be dark red and the second was more bright red Patient Denies thinners, SOB, injury, surgeries, or GI hx Patient reports the symptoms started today. Patient slightly tachy 112 but all other VSS Provider in to see patient Plan of care on going
[2025-03-31 19:16] VITALS: BP 111/76; PULSE 118; RESP 16; TEMP 36.6; O2SAT 98
[2025-03-31 19:23] LABS: OBS Int Ctl Valid YES; OBS1 POSITIVE (NEGATIVE)
--- NOTE | 2025-03-31 19:34 | PC.NURSE ---
this RN assumed care of this pt @1900, pt A+Ox3, 20g IV placed in left forearm, pt medicted per OCT, pt appears to be in no apparent distress at this time
[2025-03-31] MEDS: Lactated Ringers 1,000 ML 999 ML IV (19:35)
[2025-03-31] MEDS: iohexoL 350 MG/ML 100 ML INFUS..BTL 85 ML IV (19:50)
[2025-03-31 21:43] VITALS: BP 115/71; PULSE 90; RESP 16; TEMP 36.8; O2SAT 99
[2025-03-31 22:12] VITALS: BP 115/71; PULSE 90; RESP 16; TEMP 36.8; O2SAT 99
== END 2025-03-31 22:13 | disposition home or self-care (01) ==
PROVIDERS: Physician Assistant Medical; Emergency Provider Emergency Medicine; PCP Nurse Practitioner Family
DX: K52.9 Noninfective gastroenteritis and colitis, unspecified (principal); R10.32 Left lower quadrant pain
CPT/HCPCS: 36415; 74177; 80053; 82272; 83690; 83735; 84484; 85025; 93005; 96361; 96374; 99284; 99285; J2405; J7120; Q9967

== ENCOUNTER → 2025-03-31 17:36 | Outpatient (BNV) | payer OTHER, SELFPAY | PROVIDERS: Emergency Provider Emergency Medicine; PCP Nurse Practitioner Family; Visit Provider Internal Medicine Cardiovascular Disease | DX: R00.0 Tachycardia, unspecified (principal) | CPT/HCPCS: 93010 ==

== ENCOUNTER → 2025-03-31 19:12 | Outpatient (BNV) | payer OTHER, SELFPAY | PROVIDERS: Emergency Provider Emergency Medicine; PCP Nurse Practitioner Family; Visit Provider Radiology Vascular & Interventional Radiology | DX: R14.0 Abdominal distension (gaseous) (principal) | CPT/HCPCS: 74177 ==

== ENCOUNTER 2025-04-16 14:50 | Outpatient (AMB) | payer OTHER, SELFPAY ==
--- NOTE | 2025-04-16 14:56 | A.OFFPC_ITS ---
Vital Signs 04/16/25 14:57 Height 5 ft 6 in Weight 160 lb BMI 25.8 BP 104/70 Blood Pressure Location Lt brachial Position Sitting Pulse 83 Pulse Source Pulse Oximeter Pulse Oximetry (%) 98 Intake Visit Reasons: Ed follow up Intake Note: pt is here for ed f/up from [facility] Allergies No Known Allergies Allergy (Verified 04/16/25 14:59) Tobacco use date assessed: 04/16/25 Dental Screening Dental Screen Date: 04/16/25 Did you have a dental visit in the last 12 months?: Yes Did you have a dental problem in the last 6 months where you did not have access to dental care?: No Was dental information given to patient?: Patient has dentist HPI HPI Comments History of Present Illness Details History of Present Illness - The patient is a 44-year-old male pres enting with abdominal pain and diarrhea; also has a cough. - The patient experienced left lower nadiya drant pain and bloody diarrhea starting on March 31, accompanied by nausea but no vomiting or fever. Went to [facility], workup was WNL except abd CT showed mild enteritis. - Patient was treated with IV fluids and antiemetic medication before being discharged. - The patient reports ongoing diarrhea w ith an urge to defecate but often resulting in constipation, persisting for two weeks since the initial episode. - The stool is described as semi-formed, and there has been no significant weight loss, no fevers. - The patient reports a dry, itchy cough for the past week, with no associated fever, shortness of breath, ear pain or sinus pain. Has tried OTC meds like Robitussin and cough drops with no relief in symptoms. Physical Exam General: Cooperative, healthy appearing, comfortable, no acute distress and well developed Orientation: Patient oriented x3 Limitations: No limitations Head: Normal to inspection Ears: Hearing grossly normal bilaterally, TMs normal bilaterally Nose: Normal External nose present Face and sinus: Normal facial exam Mouth: normal oral mucosa, moist mucosa, posterior oropharynx with slight eythema and cobblestoning Eyes: Appearance normal, both eyes and all related structures Neck: Normal visual inspection and Yes full ROM Respiratory: Normal respiratory effort and able to speak in complete sentences. Skin: No rashes or lesions noted Neuro: Patient oriented x3 Extremities: Normal to inspection [facility] Surgical History No pertinent past surgical history Social History Housing: Apartment Patient Tobacco Use Status: Never used Tobacco e-Cigarette/Vaping Use: Never Used Second Hand Smoke Exposure: Yes service: No Current occupational status: employed Current occupation: [employer] Current occupational exposures/hazards: No Cognitive needs: No Hearing needs: No Vision needs: Yes Questionnaire PHQ-9 Over the last 2 weeks, how often have you been bothered by any of the following problems? 1. Little interest or pleasure in doing things: nearly every day 2. Feeling down, depressed, or hopeless: several days 3. Trouble falling or staying asleep, or sleeping too much: nearly every day 4. Feeling tired or having little energy: nearly every day 5. Poor appetite or overeating: several days 6. Feeling bad about yourself - or that you are a failure or have let yourself or your family down: more than half the days 7. Trouble concentrating on things, such as reading the newspaper or watching television: not at all 8. Moving or speaking so slowly that other people could have noticed. Or the opposite - being so fidgety or restless that you have been moving around a lot more than usual: several days 9. Thoughts that you would be better off or of hurting yourself in some way: not at all Total score: 14 Depression Screening Interpretation: Positive Depression Screening Done: Yes 70315 - PHQ-9 Billing: Yes Source: Developed by Drs. Gustavo Wilkinson, Elva Louis, Junior Finn and colleagues, with an educational leonardo from [employer]. Thrive Questionnaire Date Thrive assessed: 04/16/25 I am a: Patient What is your living situation today?: I have a steady place to live Within the past 12 months, did the food you bought not last and you didn't have the money to get more?: Never true Within the past 12 months, did you worry whether your food would run out before you got money to buy more?: Never true Do you have trouble paying for medicines?: No Do you have trouble getting transportation to medical appointments?: No Do you have trouble paying your heating and electricity bill?: No Do you have trouble taking care of your child, family member or friend?: No Do you have trouble with day-to-day activities such as bathing, preparing meals, shopping, managing finances, etc.?: No Are you currently unemployed and looking for a job?: No Are you interested in more education?: No Please select the resources that you would like help with: None Currently or been in a relationship where the following occur: No concerns reported THRIVE Score: 0 AUDIT C Alcohol Use Questionnaire (AUDIT-C) 1. How often do you have a drink containing alcohol?: Monthly or less 2. How many drinks containing alcohol do you have on a typical day when you are drinking?: 1 or 2 3. How often do you have six or more drinks on one occasion?: Never Total Score: 1 Score Reviewed/Action Taken: Yes MOHINI-7 AMB Questionnaire MOHINI-7 Date MOHINI - 7 assessed: 04/16/25 Feeling nervous, anxious, or on edge: 1 = Several days Not being able to stop or control worryin = Several days Worrying too much about different things: 1 = Several days Trouble relaxin = Nearly every day Being so restless that it is hard to sit still: 1 = Several days Becoming easily annoyed or irritable: 1 = Several days Feeling afraid as if something awful might happen: 0 = Not at all Total MOHINI-7 score (0-4 normal; 5-9 mild; 10-14 moderate; 15-21 severe): 8 Source: Developed by Drs. Gustavo Wilkinson, Elva Louis, Junior Finn and colleagues, with an educational leonardo from [employer]. MOHINI-7 Assessment Billing MOHINI-7 Assessment Tool: MOHINI-7 Assessment 11397 Review of Systems Const All systems reviewed & are unremarkable except as noted in HPI and below Physical exam (Primary Care) Vital Signs: Last Vital Signs Pulse 83 04/16/25 14:57 BP 104/70 04/16/25 14:57 Pulse Ox 98 04/16/25 14:57 BMI result Body Mass Index 25.8 Tobacco/Smoking Status: Tobacco use Status Tobacco use date assessed 04/16/25 04/16/25 15:04 Patient Tobacco Use Status Never used Tobacco 04/16/25 14:57 e-Cigarette/Vaping Use Never Used 04/16/25 14:57 PHQ-9: PHQ-9 Score PHQ-9: Total score 14 04/16/25 15:13 Depression Screening Interpretation: Positive Thrive Assessment: Date of Thrive Assessment Date Thrive assessed 04/16/25 04/16/25 15:04 Currently or been in a relationship where the following occur: No concerns reported Coding Level of Care Code Est Pt Level 4 (41524) Diagnoses Acute diarrhea R19.7 Acute cough R05.1 Cough type: acute Positive screening for depression on 9-item Patient Health Questionnaire (PHQ-9) Z13.31 Additional Codes MOHINI-7 Assessment Billing - MOHINI-7 Assessment Tool: MOHINI-7 Assessment 50483 ([id number]) PHQ-9 - 98637 - PHQ-9 Billing: Yes ([id number]) Assessment & Plan Assessment & Plan (1) Acute diarrhea: Code(s): R19.7 - Diarrhea, unspecified Category: Medical Plan: Patient was informed and verbally consented to the use of an ambient scribe for clinic note documentation during this visit. 1. Enteritis - Plan to conduct a GI panel and h pylori to rule out bacterial infection and determine the need for antibiotics as it has been >2 weeks. - Advised to follow a bland diet, such as the BRAT diet, and maintain adequate hydration to aid recovery. - Recommended dietary modifications to include bland foods and increased fluid intake. - Plan to monitor symptoms and reassess if no improvement is observed. (2) Cough: Code(s): R05.9 - Cough, unspecified Category: Medical Qualifiers: Cough type: acute Qualified Code(s): R05.1 - Acute cough Plan: - Likely viral URI vs Allergic Rhinitis - Recommended Xyzal for allergy management - Tessalon Perles for cough suppression at night if viral infection however no other symptoms. - Advised to continue monitoring symptoms and adjust OTC treatment as necessary. (3) Positive screening for depression on 9-item Patient Health Questionnaire (PHQ-9): Code(s): Z13.31 - Encounter for screening for depression Category: Medical Plan: - Messaged CHW Kate Felix to reach out to patient to offer services. Orders: Orders H pylori Ag Stool Today R19.7 - Diarrhea, unspecified GI Panel Today R19.4 - Change in bowel habit, R19.7 - Diarrhea, unspecified Medications: New benzonatate 200 mg PO BEDTIME PRN 10 caps 0RF cough
[2025-04-16 14:57] VITALS: BP 104/70; PULSE 83; O2SAT 98; BMI 25.8
== END 2025-04-16 16:10 | disposition home or self-care (01) ==
LOC: HO.HMCC 14:50
PROVIDERS: PCP Nurse Practitioner Family; Visit Provider Physician Assistant
DX: R19.7 Diarrhea, unspecified (principal); R05.1 Acute cough; Z13.31 Encounter for screening for depression

== ENCOUNTER → 2025-04-16 14:50 | Outpatient (BNVA) | payer OTHER, SELFPAY | PROVIDERS: PCP Nurse Practitioner Family; Visit Provider Physician Assistant | DX: R05.1 Acute cough (principal); R10.9 Unspecified abdominal pain; R19.7 Diarrhea, unspecified | CPT/HCPCS: 96127; 99212 ==

== ENCOUNTER 2025-06-25 14:42 | Outpatient (AMB) | payer OTHER, SELFPAY ==
--- NOTE | 2025-06-25 14:52 | A.OFFPC_ITS ---
Vital Signs 06/25/25 14:53 Weight 165 lb BP 120/84 Blood Pressure Location Lt brachial Position Sitting Respiration 16 Pulse 72 Pulse Source Pulse Oximeter Pulse Oximetry (%) 100 Oxygen Delivery Method Room Air Intake Visit Reasons: PE Land Agent Required: No Accompanied by: Self / Same As Patient Allergies No Known Allergies Allergy (Verified 06/25/25 15:44) Medication List - Last Reconciled 06/25/25 by NICOLE Conley No Known Home Meds Tobacco use date assessed: 06/25/25 Dental Screening Dental Screen Date: 06/25/25 Did you have a dental visit in the last 12 months?: No Did you have a dental problem in the last 6 months where you did not have access to dental care?: No Was dental information given to patient?: Patient declined HPI PE HPI Details History of Present Illness The patient is a 45-year-old male presenting for a physical exam and follow-up on persistent diarrhea. He was recently seen in the emergency department for diarrhea, diagnosed with gastroenteritis, and was prescribed loperamide and ondansetron. Although he feels better, he continues to experience intermittent diarrhea, postprandial urgency, and a sensation of incomplete evacuation. He denies blood in his stool. A CAT scan in March was negative aside from suggestive mild enteritis (er visit then follow up). The patient also reports insomnia and previously tried trazodone for only one to two days many years ago. Health Maintenance - The patient presented for a physical e xam. Social History Review of Systems - Gastrointestinal: Reports intermittent diarrhea, postprandial urgency, and a sensation of incomplete evacuation. - Denies hematochezia. - Constitutional: Denies fevers or chill s. - Psychiatric: Reports insomnia. -denies any si or hi Physical Exam General: Cooperative, healthy appearing, comfortable, no acute distress and well developed Orientation: Patient oriented x3 Limitations: No limitations Head: Normal to inspection Ears: Hearing grossly normal bilaterally Nose: Normal external nose present Face and sinus: Normal facial exam Eyes: Appearance normal, both eyes and all related structures Neck: Normal visual inspection and Yes full ROM Respiratory: Normal respiratory effort and able to speak in complete sentences. Clear to auscultation bilaterally Cardiovascular: Regular rate and rhythm. Normal S1 and S2 GI: Normal to inspection. Soft to palpation and nontender. No tenderness noted with deep palpation of the entire abdomen : testicles without masses/lesions and no hernias appreciated Skin: No rashes or lesions noted Neuro: Patient oriented x3 Extremities: Normal to inspection Results - CAT scan (from March): Negative excep t for suggestive mild enteritis. Plan 1. Gastroenteritis The patient has persistent intermittent diarrhea, postprandial urgency, and a feeling of incomplete evacuation following a recent ED visit. Plan includes ordering a GI panel to evaluate for C. diff and H. pylori. A referral to Gastroenterology will likely be made for further evaluation and treatment. 2. Insomnia The patient reports insomnia. A prescription for trazodone will be provided for a trial, as a previous attempt was brief and occurred years ago. Discussion Notes I discussed with the patient that his persistent diarrhea warrants further investigation despite some improvement. I informed him that I will be ordering a GI panel to check for C. diff and H. pylori, and that a referral to a weight loss counselor for further evaluation is likely. We also discussed his insomnia, and I recommended another trial of trazodone, as his previous experien ce with it was very brief and occurred years ago. Patient Instructions - You will be prescribed trazodone to he lp with your sleep; please try taking it again as directed. - We will order a stool study (GI panel) to check for causes of your ongoing diarrhea. - You will likely be referred to a [facility] the [facility] tive it systems analyst consultant ([employer]) for further evaluation. - Return to the clinic or go to the [facility] room if you develop a fever, chills, or blood in your stool. [facility] Surgical History No pertinent past surgical history Social History Housing: Apartment Patient Tobacco Use Status: Never used Tobacco e-Cigarette/Vaping Use: Never Used Second Hand Smoke Exposure: Yes service: No Current occupational status: employed Current occupation: [employer] Current occupational exposures/hazards: No Cognitive needs: No Hearing needs: No Vision needs: Yes Questionnaire PHQ-9 Over the last 2 weeks, how often have you been bothered by any of the following problems? 1. Little interest or pleasure in doing things: not at all 2. Feeling down, depressed, or hopeless: not at all 3. Trouble falling or staying asleep, or sleeping too much: not at all 4. Feeling tired or having little energy: not at all 5. Poor appetite or overeating: not at all 6. Feeling bad about yourself - or that you are a failure or have let yourself or your family down: not at all 7. Trouble concentrating on things, such as reading the newspaper or watching television: not at all 8. Moving or speaking so slowly that other people could have noticed. Or the opposite - being so fidgety or restless that you have been moving around a lot more than usual: not at all 9. Thoughts that you would be better off or of hurting yourself in some way: not at all Total score: 0 Depression Screening Interpretation: Negative Depression Screening Done: Yes 84461 - PHQ-9 Billing: Patient declined-do not bill Source: Developed by Drs. Gustavo Wilkinson, Elva Louis, Junior Finn and colleagues, with an educational leonardo from [employer]. Thrive Questionnaire Date Thrive assessed: 06/25/25 I am a: Patient What is your living situation today?: I have a steady place to live Within the past 12 months, did the food you bought not last and you didn't have the money to get more?: Never true Within the past 12 months, did you worry whether your food would run out before you got money to buy more?: Never true Do you have trouble paying for medicines?: No Do you have trouble paying your heating and electricity bill?: No Do you have trouble taking care of your child, family member or friend?: No Do you have trouble with day-to-day activities such as bathing, preparing meals, shopping, managing finances, etc.?: No Are you currently unemployed and looking for a job?: No Are you interested in more education?: Yes Please select the resources that you would like help with: None Currently or been in a relationship where the following occur: No concerns reported THRIVE Score: 0 AUDIT C Alcohol Use Questionnaire (AUDIT-C) 1. How often do you have a drink containing alcohol?: Never Total Score: 0 MOHINI-7 AMB Questionnaire MOHINI-7 Date MOHINI - 7 assessed: 06/25/25 Feeling nervous, anxious, or on edge: 0 = Not at all Not being able to stop or control worryin = Not at all Worrying too much about different things: 1 = Several days Trouble relaxin = Several days Being so restless that it is hard to sit still: 1 = Several days Becoming easily annoyed or irritable: 0 = Not at all Feeling afraid as if something awful might happen: 0 = Not at all Total MOHINI-7 score (0-4 normal; 5-9 mild; 10-14 moderate; 15-21 severe): 3 Source: Developed by Drs. Gustavo Wilkinson, Elva Louis, Junior Finn and colleagues, with an educational leonardo from [employer]. MOHINI-7 Assessment Billing MOHINI-7 Assessment Tool: MOHINI-7 Assessment 90975 Physical exam (Primary Care) Vital Signs: Last Vital Signs Pulse 72 06/25/25 14:53 Resp 16 06/25/25 14:53 BP 120/84 06/25/25 14:53 Pulse Ox 100 06/25/25 14:53 Oxygen Delivery Method Room Air 06/25/25 14:53 Tobacco/Smoking Status: Tobacco use Status Tobacco use date assessed 06/25/25 06/25/25 14:57 Patient Tobacco Use Status Never used Tobacco 06/25/25 14:57 e-Cigarette/Vaping Use Never Used 06/25/25 14:57 PHQ-9: PHQ-9 Score PHQ-9: Total score 0 06/25/25 15:31 Depression Screening Interpretation: Negative Thrive Assessment: Date of Thrive Assessment Date Thrive assessed 06/25/25 06/25/25 14:57 Currently or been in a relationship where the following occur: No concerns reported Coding Level of Care Code Est Pt Level 3 (71558) Est Pt Prev Care 40-64y(95669) Diagnoses Encounter for routine adult physical exam with abnormal findings Z00. Enteritis K52.9 Incomplete defecation R15.0 Diarrhea R19.7 Insomnia G47.00 Additional Codes MOHINI-7 Assessment Billing - MOHINI-7 Assessment Tool: MOHINI-7 Assessment 74867 ([id number]) Assessment & Plan Assessment & Plan (1) Encounter for routine adult physical exam with abnormal findings: Code(s): Z00.01 - Encounter for general adult medical examination with abnormal findings Category: Medical (2) Enteritis: Code(s): K52.9 - Noninfective gastroenteritis and colitis, unspecified Category: Medical (3) Incomplete defecation: Code(s): R15.0 - Incomplete defecation Category: Medical (4) Diarrhea: Code(s): R19.7 - Diarrhea, unspecified Category: Medical (5) Insomnia: Code(s): G47.00 - Insomnia, unspecified Category: Medical Plan . Orders: Orders Comprehensive [place]. Panel Fast Today Z00.01 - Encounter for general adult medical examination with abnormal findings UA CC w/rflx Micro + Cult Today Z00.01 - Encounter for general adult medical examination with abnormal findings Lipid Panel Today Z00.01 - Encounter for general adult medical examination with abnormal findings CDiff Gene PCR Today R19.7 - Diarrhea, unspecified H pylori Ag Stool Today R19.7 - Diarrhea, unspecified Complete Blood Count Auto Diff Today Z00.01 - Encounter for general adult medical examination with abnormal findings TSH reflex Free T4 Today Z00.01 - Encounter for general adult medical examination with abnormal findings GI Panel Today R19.7 - Diarrhea, unspecified Medications: New trazodone 50 mg PO BEDTIME PRN 30 tabs 2RF sleep 30 days
[2025-06-25 14:53] VITALS: BP 120/84; PULSE 72; RESP 16; O2SAT 100
== END 2025-06-25 15:45 | disposition home or self-care (01) ==
LOC: HO.HMCC 14:43
PROVIDERS: PCP Nurse Practitioner Family; Visit Provider Nurse Practitioner Family
DX: Z00.01 Encounter for general adult medical examination with abnormal findings (principal); K52.9 Noninfective gastroenteritis and colitis, unspecified; R15.0 Incomplete defecation; G47.00 Insomnia, unspecified

== ENCOUNTER → 2025-06-25 14:42 | Outpatient (BNVA) | payer OTHER, SELFPAY | PROVIDERS: PCP Nurse Practitioner Family; Visit Provider Nurse Practitioner Family | DX: Z00.01 Encounter for general adult medical examination with abnormal findings (principal); K52.9 Noninfective gastroenteritis and colitis, unspecified; G47.00 Insomnia, unspecified; R15.0 Incomplete defecation | CPT/HCPCS: 96127; 99212; 99396 ==

== ENCOUNTER 2025-06-29 11:08 | Outpatient (REF) | payer OTHER, SELFPAY ==
[2025-06-29 13:19] LABS: MANUAL DIFF FLAG NO
[2025-06-29 13:34] LABS: Hematocrit 48.3 % (42.0-52.0); Hemoglobin 15.4 g/dl (14.0-18.0); Imm Gran Abs Auto 0.01 X10*3/uL (0.00-0.03); Imm Gran Pct Auto 0.2 % (0.0-0.4); Lymphocytes Absolute Auto 2.3 X10*3/uL (1.2-4.9); Mean Corpuscular HGB Conc 31.9 g/dl (31.0-36.0); Mean Corpuscular Hemoglobin 28.2 pg (27.0-33.0); Mean Corpuscular Volume 88.3 fL (80.0-98.0); NRBC Abs Auto 0.000 X10*3/uL (0.0-0.012); NRBC Pct Auto 0.0 /100WBC (0.0-0.2); Platelet Count 342 X10*3/uL (160-400); Red Blood Count 5.47 X10*6/uL (4.60-5.80); White Blood Count 6.6 X10*3/uL (4.8-10.8)
[2025-06-29 14:01] LABS: Appearance Urine Clear; Glucose Urine UA Negative (Negative); PH 6.5 (5.0-9.0); Specific Gravity - Urine 1.025 (1.005-1.025)
[2025-06-29 14:31] LABS: Alanine Aminotransferase 23 U/L (0-40); Albumin Level 4.8 g/dL (3.5-5.0); Alkaline Phosphatase 99 U/L (39-117); Anion Gap 11 (12-20); Aspartate Amino Transferase 29 U/L (5-37); Blood Urea Nitrogen 18 mg/dL (9-16); Calcium 9.2 mg/dL (8.4-10.2); Carbon Dioxide 26 mmol/L (22-29); Chloride 108 mmol/L (96-108); Cholesterol 187 mg/dL (<200); Estimated Glomerular Filt Rate > 60; HDL Cholesterol 39 mg/dL (>40); Potassium 3.7 mmol/L (3.3-5.1); Sodium 141 mmol/L (135-145); Total Protein 8.0 g/dL (6.5-8.0); Triglycerides 86 mg/dL (<150)
== END 2025-06-29 11:09 | disposition home or self-care (01) ==
LOC: HO.HMGCLDS 11:08
PROVIDERS: PCP Nurse Practitioner Family; Visit Provider Nurse Practitioner Family
DX: Z00.01 Encounter for general adult medical examination with abnormal findings (principal)
CPT/HCPCS: 36415; 80053; 80061; 81003; 84443; 85025

== ENCOUNTER 2025-07-15 13:20 | Outpatient (REF) | payer OTHER, SELFPAY ==
[2025-07-16 10:04] LABS: E. coli EAEC Not Detected (Not Detect.); E. coli EPEC Not Detected (Not Detect.); E. coli ETEC Not Detected (Not Detect.); E. coli STEC Not Detected (Not Detect.); Shigella sp./EIEC Not Detected (Not Detect.)
== END 2025-07-15 13:21 | disposition home or self-care (01) ==
LOC: HO.HMGCLNP 13:20
PROVIDERS: PCP Nurse Practitioner Family; Visit Provider Nurse Practitioner Family
DX: R19.7 Diarrhea, unspecified (principal)
CPT/HCPCS: 87338; 87493; 87507